=== PATIENT | female | born 1955 | race Caucasian/White ===

== ENCOUNTER → 2017-07-11 | Day surgery (SDC) | payer OTHER ==
[~2017-07-11] MED LIST: ASPIRIN81 M1 PO; DESYREL50 MG PO; METOPROLOL SUCC25 MG PO; MOBIC15 MG PO; NO MEDICATIONS; ZOCOR PO
--- NOTE | ~2017-07-11 | OR ---
Unit #: [id number] #: [id number] Patient: ARLET PURCELL [id number] [address] [address] [id number] O MR#: [id number] NAME: ARLET PURCELL. ROOM: Date of Procedure: 07/11/2017 Admission Date: 07/11/2017 Surgeon: Bobo Beckett M.D. : 1955 Attending Physician: Bobo Beckett M.D. Primary Care Physician: Timoteo Chavez M.D. OPERATIVE REPORT PREOPERATIVE DIAGNOSIS Colorectal cancer screening in an average-risk patient. PROCEDURES PERFORMED 1. Colonoscopy and polypectomy. Colonoscopy with biopsies. POSTOPERATIVE DIAGNOSES 1. The patient had a sessile polyp in the proximal transverse colon. This was about 5 mm in size and it was removed using snare polypectomy. 2. A large pedunculated polyp in the proximal sigmoid colon. This polyp head was at least 3.5 cm in size. Only piecemeal polypectomy of the head could be done. There was a lot of white out of the peduncle as a result, it was felt unsafe to continue resection and the remaining polyp will be taken out at a repeat examination in three to six months later. 3. A smaller polyp in the proximal sigmoid, fulgurated using snare cautery tip. 4. The patient also had sigmoid and descending colon diverticulosis. 5. Rest of the examination up to cecum and terminal ileum was normal. Multiple random colonic biopsies were obtained from throughout the colon to rule out microscopic or collagenous colitis. RECOMMENDATIONS Follow up results of polyp histology and consider repeat examination in three to six months' time. SEDATION USED MAC. DESCRIPTION OF PROCEDURE Following detailed explanation of the potential risks, and complications of a colonoscopy, namely perforation, bleeding, complications related to sedation, the patient was brought to the GI lab, and laid in the left lateral decubitus position. A digital rectal examination was performed, which was normal. Lubricated tip of the Olympus video colonoscope was inserted through the anus and advanced under direct vision. The scope was advanced and passed up to the sigmoid and into descending colon. Multiple medium-sized diverticula were noted in this area. The scope was then navigated all the way up to cecum with visualization of the ileocecal valve and the appendiceal orifice. Last few inches of the terminal ileum also visualized after intubation of the ileocecal valve and it appeared normal. Successive segments of the colonic mucosa were examined upon withdrawal. A single sessile polyp in the proximal transverse colon was Unit #: [id number] #: [id number] Patient: ARLET PURCELL removed using snare polypectomy. It was about 5 mm in size. Attention was focused on a large pedunculated sigmoid polyp, this was at least 3.5 cm in size and frequently prolapsing retrogradely into this sigmoid. As a result of tight space, it was impossible to grasp the entire polyp head and partial polypectomy was done. The procedure was then attempted with an upper GI scope after changing the patient's position to supine and right lateral. The scope, after about an hour and half worth of trial, it was felt unsafe to continue procedure for risk of too much air insufflation and the patient's discomfort. A smaller polyp in the sigmoid was also fulgurated. Other than the left-sided diverticula, no additional abnormalities were noted. The patient did not have any hemorrhoids at anal verge. The scope was then withdrawn. The patient then returned to the recovery area. She tolerated the procedure without any postprocedure complications. Dictated by... Ede Calixto/jak TD: 07/12/2017 05:30 JOB #: [id number] OPERATIVE REPORT Page 1 of 1 X Bobo Beckett MD X PROCEDURE OPERATIVE NOTE
== END | disposition home or self-care (01) ==
LOC: COPS 06:35
DX: Z12.11 Encounter for screening for malignant neoplasm of colon (principal); D12.3 Benign neoplasm of transverse colon; D12.5 Benign neoplasm of sigmoid colon; K57.30 Diverticulosis of large intestine without perforation or abscess without bleeding; F17.210 Nicotine dependence, cigarettes, uncomplicated; Z88.5 Allergy status to narcotic agent; Z98.818 Other dental procedure status; Z98.890 Other specified postprocedural states
CPT/HCPCS: 88305; J2250